=== PATIENT | female | born 2000 | race Caucasian/White ===

== ENCOUNTER 2024-11-14 23:12 | Emergency (ER) | payer SELFPAY ==
[2024-11-14] MEDS ORDERED: Sodium Chloride 0.9% 10 ML Syringe FLUSH PRN (23:22)
[2024-11-14 23:25] LABS: BASOPHILS PERCENT AUTO 0.1 % (0.0-1.0); EOSINOPHILS PERCENT AUTO 4.9 % (1.0-3.0); LYMPHOCYTES PERCENT AUTO 50.3 % (20.5-50.1); MONOCYTES PERCENT AUTO 7.1 % (2-8); NEUTROPHILS PERCENT AUTO 37.6 % (42.2-75.2); PLATELET COUNT,PLT 400 10^3/uL (150-450); RED BLOOD CELL COUNT 4.31 10^6/uL (4.2-5.4); WHITE BLOOD CELL COUNT,WBC 9.0 10^3/uL (5.0-10.0)
[2024-11-14 23:27] LABS: APPEARANCE,URINE SLIGHTLY CLOUDY (CLEAR); GLUCOSE,URINE NEGATIVE (NEGATIVE); OCCULT BLOOD,URINE NEGATIVE (NEGATIVE)
[2024-11-14] MEDS: Ondansetron 4 MG/2 ML SDV IVPUSH ONE (23:32)
[2024-11-14 23:35] LABS: EPITHELIAL CELLS,URINE MANY /HPF (NOT SEEN)
[2024-11-14 23:44] LABS: A/G RATIO 1.3; ALANINE AMINOTRANSFERASE,ALT 37 U/L (14-59); ASPARTATE AMNIOTRANSFERASE,AST 41 U/L (15-37); BILIRUBIN TOTAL 0.4 mg/dL (0.2-1.0); BLOOD UREA NITROGEN,BUN 9 mg/dL (7-18); CARBON DIOXIDE,CO2 30 mmol/L (21-32); CHLORIDE,CL 108 mmol/L (98-107); CREATININE 0.78 mg/dL (0.55-1.02); ESTIMATED GFR 107 mL/min (>=60); GLUCOSE RANDOM 116 mg/dL (70-99); POTASSIUM,K 3.3 mmol/L (3.5-5.1); PROTEIN TOTAL,TP 7.0 g/dL (6.4-8.2); SODIUM,NA 145 mmol/L (136-145)
[2024-11-14 23:45] LABS: HCG QUALITATIVE,SERUM NEGATIVE (NEGATIVE)
[2024-11-15] MEDS: Iopamidol 755 Mg/ML 100 ML Bottle IVPUSH ONE (00:04)
[2024-11-15 00:11] LABS: LACTIC ACID 1.3 mmol/L (0.4-2.0)
[2024-11-15] MEDS: methylPREDNISolone Sodium Succinate 125 MG/2 ML SDV IM ONE (01:07)
[2024-11-15] MEDS: diphenhydrAMINE 50 MG/ML SDV IVPUSH ONE (01:07)
[2024-11-15 01:54] VITALS: BP 132/67; PULSE 98
== END 2024-11-15 01:52 ==
LOC: DL.ED 23:12
DX: K85.90 Acute pancreatitis without necrosis or infection, unspecified (principal); Z79.899 Other long term (current) drug therapy; Z91.041 Radiographic dye allergy status
CPT/HCPCS: 36415; 74177; 80053; 81001; 83605; 83690; 84703; 85025; 87086; 96361; 96372; 96374; 96375; 99284; 99285; J1171; J1200; J2405; J2919; J7030; J7620; Q9967; A9270-GY